=== PATIENT | male | born 1980 | race Caucasian/White ===

== ENCOUNTER → 2016-08-04 | Outpatient (CLI) | payer BC | END | disposition home or self-care (01) | LOC: MW.CHFP 11:30 | PROVIDERS: ATTEND Physician Assistant | DX: L91.8 Other hypertrophic disorders of the skin (principal); D18.09 Hemangioma of other sites | CPT/HCPCS: 88304; 88305 ==

== ENCOUNTER 2022-12-23 06:37 | Day surgery (SDC) | payer OTHER ==
[~2022-12-23 06:37] MED LIST: Acetaminophen 1,000 MG in Premix Bag 1 BAG IV SCH; Lactated Ringers 1,000 ML IV SCH; Pregabalin 75 MG Cap PO SCH
[2022-12-23 07:10] LABS: BASOPHILS PERCENT AUTO 0.6 % (0.0-1.5); EOSINOPHILS ABSOLUTE AUTO 0.3 K/uL (0.0-0.7); EOSINOPHILS PERCENT AUTO 3.6 % (0.0-7.0); HEMATOCRIT 40.9 % (38.0-50.0); HEMOGLOBIN 13.5 g/dL (13.0-17.0); LYMPHOCYTES ABSOLUTE AUTO 1.8 K/uL (0.6-2.4); LYMPHOCYTES PERCENT AUTO 26.1 % (16.0-40.0); MEAN CORPUSCULAR HEMOGLOBIN 28.1 pg (27.0-32.0); MONOCYTES ABSOLUTE AUTO 0.9 K/uL (0.0-0.8); MONOCYTES PERCENT AUTO 12.3 % (0.0-15.0); NEUTROPHILS PERCENT AUTO 57.4 % (48.0-80.0); NRBC ABSOLUTE 0 K/uL; PLATELET COUNT,PLT 279 K/uL (150-400); RED BLOOD CELL COUNT 4.81 M/uL (4.50-5.90)
[2022-12-23 07:34] LABS: ALBUMIN 3.9 g/dL (3.4-5.0); BILIRUBIN TOTAL 0.3 mg/dL (0.2-1.0); CALCIUM 9.4 mg/dL (8.5-10.1); CARBON DIOXIDE,CO2 30.5 mmol/L (21.0-32.0); CREATININE 0.8 mg/dL (0.8-1.3); EST CRCL DRUG DOSING (CG) 122.93 mL/min; POTASSIUM,K 4.5 mmol/L (3.5-5.1); PROTEIN TOTAL,TP 7.9 g/dL (6.4-8.2)
[2022-12-23] MEDS ORDERED: Heparin Sodium 100 Units/ML 3 ML Syringe ONE (07:46)
[2022-12-23] MEDS ORDERED: Iopamidol 408 MG/ML 20 ML SDV ONE (07:46)
[2022-12-23] MEDS ORDERED: Bupivacaine 0.5% 30 ML SDV ONE (07:46)
[2022-12-23] MEDS ORDERED: Lidocaine 1% 20 ML MDV ONE (07:46)
[2022-12-23] MEDS ORDERED: Dexamethasone 4 MG/ML 5 ML MDV IV ONE (07:50)
[2022-12-23] MEDS ORDERED: Dexmedetomidine 200 MCG/2 ML SDV IV ONE (07:50)
[2022-12-23] MEDS ORDERED: ceFAZolin 2 GM in Sodium Chloride 0.9% 50 ML IV ONE (07:56)
[2022-12-23] MEDS ORDERED: droPERidol 5 MG/2 ML SDV IVPUSH PRN (09:45)
[2022-12-23] MEDS ORDERED: fentaNYL 50 MCG/ML SDV IVPUSH PRN (09:45)
[2022-12-23] MEDS ORDERED: Ondansetron 4 MG/2 ML SDV IVPUSH PRN (09:45)
[2022-12-23] MEDS ORDERED: Morphine 2 MG/ML SYRINGE IVPUSH PRN (09:45)
[2022-12-23] MEDS ORDERED: HYDROmorphone 1 MG/ML Syringe IVPUSH PRN (09:45)
[2022-12-23] MEDS ORDERED: Albuterol 0.083% 2.5 MG/3 ML Neb Soln NEB PRN (09:45)
[2022-12-23] MEDS ORDERED: Naloxone 0.4 MG/ML SDV IVPUSH PRN (09:45)
[2022-12-23] MEDS ORDERED: Metoclopramide 10 MG/2 ML SDV IVPUSH PRN (09:45)
[2022-12-23] MEDS ORDERED: Morphine 10 MG/ML SDV ONE (10:28)
== END 2022-12-23 12:40 | disposition home or self-care (01) ==
LOC: MW.SDS 06:37
PROVIDERS: ATTEND Surgery
DX: C13.9 Malignant neoplasm of hypopharynx, unspecified (principal); J30.9 Allergic rhinitis, unspecified; I10 Essential (primary) hypertension; E66.9 Obesity, unspecified; R73.09 Other abnormal glucose; K14.8 Other diseases of tongue; Z87.891 Personal history of nicotine dependence; Z79.899 Other long term (current) drug therapy; Z68.28 Body mass index [BMI] 28.0-28.9, adult
CPT/HCPCS: 36415; 36561; 43246; 71045; 76000; 80053; 83735; 85025; A9270; J0131; J1100; J1642; J2270; J3490; J7120; 00731; Q9966

== ENCOUNTER 2022-12-27 15:42 | Emergency (ER) | payer OTHER ==
[2022-12-27] MEDS ORDERED: Lactated Ringers 1,000 ML IV SCH ×2 (16:00→17:15)
[2022-12-27 16:07] LABS: BASOPHILS PERCENT AUTO 0.1 % (0.0-1.5); EOSINOPHILS PERCENT AUTO 0.1 % (0.0-7.0); HEMATOCRIT 40.5 % (38.0-50.0); HEMOGLOBIN 13.7 g/dL (13.0-17.0); LYMPHOCYTES ABSOLUTE AUTO 3.1 K/uL (0.6-2.4); LYMPHOCYTES PERCENT AUTO 26.7 % (16.0-40.0); MEAN CORPUSCULAR HEMOGLOBIN 28.7 pg (27.0-32.0); MEAN CORPUSCULAR HGB CONC 33.8 g/dL (31.0-37.0); MEAN CORPUSCULAR VOLUME 84.7 fL (80.0-98.0); MONOCYTES ABSOLUTE AUTO 0.4 K/uL (0.0-0.8); MONOCYTES PERCENT AUTO 3.8 % (0.0-15.0); NEUTROPHILS ABSOLUTE AUTO 7.9 K/uL (1.4-5.7); NEUTROPHILS PERCENT AUTO 69.3 % (48.0-80.0); NRBC ABSOLUTE 0 K/uL; PLATELET COUNT,PLT 347 K/uL (150-400); RED BLOOD CELL COUNT 4.78 M/uL (4.50-5.90); WHITE BLOOD CELL COUNT,WBC 11.44 K/uL (4.0-11.0)
[2022-12-27 16:19] LABS: A/G RATIO 0.9 (0.9-1.6); ALANINE AMINOTRANSFERASE,ALT 28 IU/L (14-63); ALBUMIN 3.5 g/dL (3.4-5.0); ALKALINE PHOSPHATASE 75 U/L (46-116); ASPARTATE AMNIOTRANSFERASE,AST 17 IU/L (15-37); BILIRUBIN TOTAL 0.4 mg/dL (0.2-1.0); BLOOD UREA NITROGEN,BUN 18 mg/dL (7.0-18.0); CALCIUM 8.5 mg/dL (8.5-10.1); CHLORIDE,CL 97 mmol/L (98-107); CREATININE 1.2 mg/dL (0.8-1.3); ESTIMATED GFR 77 mL/min (>60); GLUCOSE RANDOM 134 mg/dL (74-106); LIPASE 101 U/L (16-77); MAGNESIUM 2.3 mg/dL (1.8-2.4); POTASSIUM,K 3.6 mmol/L (3.5-5.1); PROTEIN TOTAL,TP 7.4 g/dL (6.4-8.2); SODIUM,NA 136 mmol/L (136-148)
[2022-12-27 16:42] LABS: LACTIC ACID 0.9 mmol/L (0.4-2.0)
[2022-12-27] MEDS ORDERED: Ondansetron 4 MG/2 ML SDV IVPUSH ONE (16:58)
== END 2022-12-27 19:08 | disposition home or self-care (01) ==
LOC: MW.ED 15:42
DX: R55 Syncope and collapse (principal); I10 Essential (primary) hypertension; Z87.891 Personal history of nicotine dependence
CPT/HCPCS: 36415; 70450; 80053; 83605; 83690; 83735; 84484; 85025; 93005; 96361; 96374; 99284; J2405; J7120; 93010

== ENCOUNTER 2023-01-16 10:58 | Emergency (ER) | payer OTHER ==
[2023-01-16] MEDS ORDERED: Sodium Chloride 0.9% 1,000 ML IV ONE (11:46)
[2023-01-16] MEDS ORDERED: Ondansetron 4 MG/2 ML SDV IVPUSH ONE (12:13)
[2023-01-16 12:16] LABS: BASOPHILS PERCENT AUTO 0.1 % (0.0-1.5); HEMATOCRIT 36.7 % (38.0-50.0); HEMOGLOBIN 11.9 g/dL (13.0-17.0); LYMPHOCYTES ABSOLUTE AUTO 0.6 K/uL (0.6-2.4); LYMPHOCYTES PERCENT AUTO 4.5 % (16.0-40.0); MEAN CORPUSCULAR HEMOGLOBIN 28.1 pg (27.0-32.0); MEAN CORPUSCULAR HGB CONC 32.4 g/dL (31.0-37.0); MEAN CORPUSCULAR VOLUME 86.6 fL (80.0-98.0); MONOCYTES ABSOLUTE AUTO 0.9 K/uL (0.0-0.8); MONOCYTES PERCENT AUTO 6.9 % (0.0-15.0); NEUTROPHILS ABSOLUTE AUTO 11.1 K/uL (1.4-5.7); NEUTROPHILS PERCENT AUTO 88.5 % (48.0-80.0); NRBC ABSOLUTE 0 K/uL; PLATELET COUNT,PLT 371 K/uL (150-400); RED BLOOD CELL COUNT 4.24 M/uL (4.50-5.90); WHITE BLOOD CELL COUNT,WBC 12.55 K/uL (4.0-11.0)
[2023-01-16 12:55] LABS: A/G RATIO 1.1 (0.9-1.6); ALBUMIN 3.6 g/dL (3.4-5.0); BILIRUBIN TOTAL 0.2 mg/dL (0.2-1.0); CALCIUM 8.2 mg/dL (8.5-10.1); CARBON DIOXIDE,CO2 25.7 mmol/L (21.0-32.0); CREATININE 0.9 mg/dL (0.8-1.3); EST CRCL DRUG DOSING (CG) 105.83 mL/min; MAGNESIUM 2.2 mg/dL (1.8-2.4); POTASSIUM,K 3.8 mmol/L (3.5-5.1); TSH ULTRASENSITIVE 1.95 uIU/mL (0.36-3.74)
== END 2023-01-16 13:30 | disposition home or self-care (01) ==
LOC: MW.ED 10:58
DX: R55 Syncope and collapse (principal)
CPT/HCPCS: 36415; 80053; 82947; 83735; 84443; 84484; 85025; 93005; 96361; 96374; 99284; J2405; J7030; 93010